=== PATIENT | male | born 1980 | race Caucasian/White ===

== ENCOUNTER 2018-07-09 21:15 | Emergency (ER) | payer SELFPAY ==
[2018-07-09 21:19] VITALS: BP 134/80; PULSE 58; RESP 12; TEMP 37; O2SAT 99
--- NOTE | 2018-07-09 21:30 | DI.RAD.S_ITS ---
PROCEDURE: XR FOREARM RT 2V INDICATIONS: fall onto left arm pain + swelling below elbow TECHNIQUE: 2 views of the forearm were acquired. COMPARISON: None. FINDINGS: Bones: No fractures or dislocations. No suspicious bony lesions. Soft tissues: No suspicious soft tissue calcifications or masses. IMPRESSION: No fracture. If the patient's symptoms do not improve recommend followup radiographs in 10 days to assess for healing sclerosis/occult injury. Dictated by: Darío De La Torre M.D. on 07/10/2018 at 8:24 Approved by: Darío De La Torre M.D. on 07/10/2018 at 8:32
--- NOTE | 2018-07-09 21:30 | DI.RAD.S_ITS ---
PROCEDURE: XR ELBOW LT MIN 3V INDICATIONS: fall onto left arm pain + swelling below elbow TECHNIQUE: 3 views of the elbow were acquired. COMPARISON: None. FINDINGS: Bones: No fractures or dislocations. No suspicious bony lesions. Soft tissues: No elbow joint effusion. No suspicious soft tissue calcifications. IMPRESSION: No fracture Dictated by: Darío De La Torre M.D. on 07/10/2018 at 8:23 Approved by: Darío De La Torre M.D. on 07/10/2018 at 8:24
--- NOTE | 2018-07-09 22:02 | ED_ITS ---
HPI - Extremity Injury (Upper) General Chief Complaint: Extremity Injury, Upper Stated Complaint: LT ARM AND HAND PAIN S/P FALL FROM ROOF Time Seen by Provider: 07/09/18 22:01 Source: patient Mode of arrival: ambulatory Limitations: no limitations History of Present Illness HPI narrative: The patient is a construction secretary. About 5 hours ago he was up on a ladder, working at the edge of the roof. The ladder slipped out backwards, he fell straight down. He got his hands on the edge of the roof as he fell, laceration to the tip of his left 3rd finger. He landed in the possible 0, there was no head, neck or spine injury. He complains primarily of left forearm pain. He has no chest pain, dyspnea or difficulty breathing. He has no abdominal pain. He has no extremity pain other than the left arm. His last tetanus was unknown, it will be updated. He is right-hand dominant. Related Data Home Medications Medication Instructions Recorded Confirmed No Known Home Medications 07/09/18 07/09/18 Allergies Allergy/AdvReac Type Severity Reaction Status Date / Time No Known Drug Allergies Allergy Verified 07/09/18 21:24 Review of Systems Review of Systems ROS Unobtainable: All systems reviewed & are unremarkable except as noted in HPI and below Constitutional Reports body ache(s), Denies lethargy and Denies weakness Eyes Denies change in vision ENT Ears, Nose, Mouth, and Throat: Reports as per HPI Cardiovascular Denies chest pain and Denies dyspnea Respiratory Denies cough and Denies dyspnea Gastrointestinal Gastrointestinal: Denies abdominal pain and Denies nausea Musculoskeletal Comments: Left elbow, forearm and hand pain. Integumentary/Breasts Denies pruritus, Denies erythema, Denies rash and Denies wounds Neurologic Denies weakness [facility] Medical History Sick sinus syndrome (Acute) Social History Smoking Status: Never smoker Social History Smoking Status: Never smoker Exam Initial Vital Signs Initial Vital Signs: Vital Signs Temperature 98.6 F 07/09/18 21:19 Pulse Rate 58 L 07/09/18 21:19 Respiratory Rate 12 07/09/18 21:19 Blood Pressure 134/80 07/09/18 21:19 Pulse Oximetry 99 07/09/18 21:19 Const General: cooperative and well developed Nutritional Appearance: well nourished Orientation: alert, awake, oriented x3 and not confused HENTN Head: normocephalic and atraumatic Eyes Conjunctivae: conjunctivae normal Pupils: PERRL EOM: EOM intact bilaterally Neck Neck: No tender Chest Chest: No sinus tracts and No tenderness Resp Effort & Inspection: normal respiratory effort, able to speak in complete sentences, no respiratory distress and no use of accessory muscles Auscultation: clear to auscultation bilaterally, no rales, no rhonchi and no wheezes Cardio Rate: regular rate Rhythm: regular rhythm Heart Sounds: no click, no gallops, no murmurs and no rubs Pulses: normal peripheral pulses Back/Spine/Pelvis Back: No back tenderness Skin General: no rashes or lesions noted and No petechiae Lesions: other (Left arm abrasions) Neuro General: alert, oriented x3, gait normal and no focal motor deficits Speech: speech normal Extrem General: full ROM and other Other: The patient has full range of motion left shoulder, tenderness around the left medial elbow. Range of motion of the elbow is normal. In the mid forearm on the ulnar side there is a large contusion/abrasion. There is no palpable deformity to the radius or ulnar. Left wrist is nontender. He has multiple abrasions across the volar fingers, but full range of motion without any abnormality in the fingers. On the left mid finger he has what looks to be a pyogenic granuloma at the tip of the finger. There was a superficial laceration through this structure. There is no active bleeding. Course Orders Ordered: ED Orders 07/09/18 21:30 XR elbow LT min 3V Stat XR forearm LT 2V Stat 07/09/18 22:08 XR hand LT min 3V Stat Vital Signs - 8 hr 07/09/18 21:19 Temperature 98.6 F Pulse Rate 58 L Respiratory Rate 12 Blood Pressure 134/80 Pulse Oximetry 99 MDM - Extremity Injury (Upper) Imaging Data Left elbow x-ray: My impression: Normal Left forearm x-ray: My impression: No bony injuries. Left hand x-ray:: Radiologist's impression: No acute injuries. The soft tissue structure seen on exam was visualized at the tip of the left middle finger. Discharge Plan Departure Patient Disposition: Home Clinical Impression: Contusion of forearm, left Qualifiers: Encounter type: initial encounter Qualified Code(s): S50.12XA - Contusion of left forearm, initial encounter Abrasion of hand, left Qualifiers: Encounter type: initial encounter Qualified Code(s): S60.512A - Abrasion of left hand, initial encounter Instructions: Contusion Activity Restrictions/Additional Instructions: Take Tylenol or Advil as needed for pain. I would recommend ice packs to the left arm as needed for the next couple days. I am going to give you contact information to range in appointment to deal with the soft tissue mass at the tip of your left 3rd finger. Call Dr. Foster to arrange a consult. Prescriptions: No Action No Known Home Medications RF: 0 Referrals: Boo Davis MD [Physician] -
--- NOTE | 2018-07-09 22:07 | PC.NURSE ---
Contusion noted to the left forearm with associated pain. Full range of motion. Third finger of left hand has a nodule on end, which was already there. The laceration is on the nodule.
--- NOTE | 2018-07-09 22:08 | DI.RAD.S_ITS ---
PROCEDURE: XR HAND LT MIN 3V INDICATIONS: fall TECHNIQUE: 3 views of the hand(s) acquired. COMPARISON: None. FINDINGS: Bones: No fractures or dislocations. Carpal bones are normally aligned. No suspicious bony lesions. First CMC and triscaphe joint degeneration Soft tissues: Punctate possible foreign body projecting in the volar soft tissues of the distal tip of the index finger. Middle finger distal laceration/soft tissue swelling. IMPRESSION: No fracture Small foreign body involving the distal soft tissues of the index finger. Dictated by: Darío De La Torre M.D. on 07/10/2018 at 8:18 Approved by: Darío De La Torre M.D. on 07/10/2018 at 8:23
--- NOTE | 2018-07-10 00:19 | PC.NURSE ---
Abrasion LFA cleaned with soap and water,bacitrqacin to site after.
[2018-07-10 00:20] VITALS: BP 141/80; PULSE 60; RESP 18; O2SAT 99
== END 2018-07-10 00:26 | disposition home or self-care (01) ==
PROVIDERS: Emergency Provider Emergency Medicine
DX: S50.12XA Contusion of left forearm, initial encounter (principal); S60.512A Abrasion of left hand, initial encounter; W13.2XXA Fall from, out of or through roof, initial encounter; Y99.0 Civilian activity done for income or pay
CPT/HCPCS: 73080; 73090; 73130; 99283

== ENCOUNTER → 2024-12-18 09:09 | Outpatient (CLI) | payer SELFPAY ==
[2024-12-18 18:50] LABS: Appearance Urine UA CLEAR; Bilirubin Urine UA NEGATIVE (NEGATIVE); Color Urine UA YELLOW; Glucose Urine UA NEGATIVE (Negative); Ketones Urine UA NEGATIVE (NEGATIVE); Leukocyte Esterase Urine UA NEGATIVE (NEGATIVE); Nitrite Urine UA NEGATIVE (Negative); Occult Blood Urine UA NEGATIVE (Negative); Protein Urine UA TRACE (Negative); Specific Gravity Urine UA 1.020 (1.000-1.035); Urobilinogen Urine UA 0.2 E.U./dL (0.2); pH Urine UA 7.0 (4.5-8.0)
[2024-12-18 19:05] LABS: Add Manual Diff / Slide Review NO; Hematocrit 44.3 % (41-53); Hemoglobin 15.5 g/dL (13.5-17.5); Lymphocytes Absolute Auto 1500 /uL (1100-4500); Mean Corpuscular HGB Conc 34.9 % (30-36); Mean Corpuscular Hemoglobin 32.2 PG (26-34); Mean Corpuscular Volume 92.2 fL (80-100); Platelet Count 191 X10^3/uL (150-400)
[2024-12-18 19:06] LABS: Culture Indicated Urine Cult Not Indicated
[2024-12-18 19:07] LABS: Alanine Aminotransferase 34 IU/L (<50); Albumin 4.7 g/dL (3.5-5.0); Albumin Globulin Ratio 1.6 (1.0-2.8); Alkaline Phosphatase 85 U/L (38-126); Blood Urea Nitrogen 13 mg/dL (9-20); Calcium 9.3 mg/dL (8.4-10.2); Carbon Dioxide 25 mmol/L (22-32); Chloride 102 mmol/L (98-107); Cholesterol 170 mg/dL (140-199); Estimated Glomerular Filt Rate > 60 mL/min (>60); Globulin 2.9 g/dL (1.7-4.1); Glucose 112 mg/dL (70-99); HDL Cholesterol 52 mg/dL (40-60); HEMOLYSIS < 15 (0-50); Lipase 175 U/L (23-300); Potassium 4.2 mmol/L (3.4-5.1); Sodium 138 mmol/L (137-145); Total Protein 7.6 g/dL (6.3-8.2); Triglycerides 212 mg/dL (35-150)
[2024-12-18 19:59] LABS: Hep C Virus Ab w/Reflex Quant NEGATIVE s/c (NEGATIVE)
== END ==
PROVIDERS: PCP Physician Assistant; Visit Provider Physician Assistant
DX: R10.11 Right upper quadrant pain (principal); R07.89 Other chest pain; Z13.6 Encounter for screening for cardiovascular disorders; R31.9 Hematuria, unspecified; Z12.5 Encounter for screening for malignant neoplasm of prostate
CPT/HCPCS: 80053; 80061; 81001; 83690; 85025; 86803; G0103

== ENCOUNTER → 2024-12-31 10:29 | Outpatient (CLI) | payer OTHER, SELFPAY ==
--- NOTE | 2024-12-31 10:30 | DI.US.S_ITS ---
PROCEDURE: US ABDOMEN COMPLETE
== END ==
PROVIDERS: PCP Physician Assistant; Referring Provider Physician Assistant; Visit Provider Physician Assistant
DX: K76.0 Fatty (change of) liver, not elsewhere classified (principal); R31.9 Hematuria, unspecified; R11.0 Nausea; R10.11 Right upper quadrant pain
CPT/HCPCS: 76700